=== PATIENT | female | born 1955 | race Caucasian/White ===

== ENCOUNTER 2019-08-05 04:10 | Inpatient (IN) ==
--- NOTE | 2019-07-30 08:23 | EKG Report ---
Test Performed on : 07/30/2019 08:11:24 AM Test Reason : PAT Blood Pressure : / mmHG Vent. Rate : 082 BPM Atrial Rate : 082 BPM P-R Int : 102 ms QRS Dur : 074 ms QT Int : 374 ms P-R-T Axes : 032 070 066 degrees QTc Int : 436 ms Sinus rhythm. with short UT Otherwise normal ECG No previous ECGs available Confirmed by Franco Maradiaga MD ([id number]) on 07/31/2019 12:22:48 PM
[2019-07-30 09:00] LABS: URINE SOURCE CLEAN CATCH
[2019-07-30 09:11] LABS: BASO# 0.02 X1000 (0.0-0.2); BASO% 0.5 % (0.0-0.8); EOS# 0.07 X1000 (0.0-0.7); EOS% 1.7 % (0.0-10.0); HEMATOCRIT 40.9 % (37.0-47.0); HEMOGLOBIN 13.8 g/dL (12.0-16.0); LYMPH# 1.54 X1000 (1.2-3.4); LYMPH% 37.2 % (20.5-51.1); MCH 31.1 PG (27-31); MCHC 33.7 g/dL (33-37); MCV 92.1 FL (81-99); MONO# 0.26 X1000 (0.11-0.59); MONO% 6.3 % (1.7-9.3); MPV 10.3 FL (7.4-10.4); NEUT# 2.25 X1000 (1.4-6.5); NEUT% 54.3 % (42.2-75.2); PLT 238 X1000 (130-400); RBC 4.44 XMIL (4.2-5.4); RDW 12.6 % (11.5-14.5); WBC 4.14 X1000 (4.8-10.8)
[2019-07-30 09:19] LABS: INR 0.99; PROTIME 13.1 Seconds (11.0-16.0); PTT 27.5 Seconds (22.3-41.8)
[2019-07-30 09:54] LABS: BILIRUBIN URINE NEGATIVE (NEGATIVE); BLOOD URINE NEGATIVE (NEGATIVE); COLOR YELLOW; GLUCOSE URINE NEGATIVE (NEGATIVE); KETONE URINE NEGATIVE (NEGATIVE); LEUKOCYTES URINE MODERATE (NEGATIVE); NITRITE URINE NEGATIVE (NEGATIVE); PH URINE 5.5; PROTEIN URINE NEGATIVE (NEGATIVE); SP GRAVITY URINE 1.024; TURBIDITY URINE CLEAR (CLEAR); UROBILINOGEN URINE NORMAL (NORMAL)
[2019-07-30 09:55] LABS: UR EPITHELIAL CELLS <10 /HPF (<10); URINE BACTERIA NEGATIVE /HPF; URINE RBC <10 /HPF (<10); URINE WBC <10 /HPF (<10)
[2019-07-30 09:56] LABS: AGAP 11; ALBUMIN 4.3 g/dL (3.5-5.0); BUN 14 mg/dL (8-22); CALCIUM 9.1 mg/dL (8.8-10.2); CHLORIDE 105 mmol/L (98-107); COSMO 283; CREATININE 0.7 mg/dL (0.5-0.9); ESTIMATED GFR > 60; GLUCOSE 94 mg/dL (70-104); POTASSIUM 4.1 mmol/L (3.5-5.1); SODIUM 142 mmol/L (136-145); TCO2 26 mmol/L (25-35)
[2019-07-30 11:17] LABS: HEMOGLOBIN A1C 5.1 % (4.8-6.0)
[2019-08-05] MEDS ORDERED: REGLAN ONE (06:00)
[2019-08-05] MEDS ORDERED: COLACE ONE (06:00)
[2019-08-05] MEDS ORDERED: PEPCID ONE (06:00)
[2019-08-05] MEDS ORDERED: CELEBREX ONE (06:00)
[2019-08-05] MEDS ORDERED: LYRICA ONE (06:00)
[2019-08-05] MEDS ORDERED: KEFZOL 1 GM/D5W 1 GM/50 ML IVPB ONE (06:01)
[2019-08-05] MEDS ORDERED: LR 1,000 ML ONE (06:01)
[2019-08-05] MEDS ORDERED: QUELICIN (DOSE) ONE (06:31)
[2019-08-05] MEDS ORDERED: XYLOCAINE-MPF 2% ONE (06:31)
[2019-08-05] MEDS ORDERED: DIPRIVAN 1% ONE (06:32)
[2019-08-05] MEDS ORDERED: FENTANYL ONE (06:32)
[2019-08-05] MEDS ORDERED: SUFENTA ONE (06:46)
[2019-08-05] MEDS ORDERED: DECADRON ONE (06:56)
[2019-08-05] MEDS ORDERED: ZEMURON ONE (06:56)
[2019-08-05] MEDS ORDERED: SODIUM CHLORIDE 0.9% ONE (06:58)
[2019-08-05] MEDS ORDERED: EXPAREL 1.3% ONE (06:58)
[2019-08-05] MEDS ORDERED: CYKLOKAPRON 1,000 MG/NS 1,000 MG/100 ML IVPB ONE (06:58)
[2019-08-05] MEDS ORDERED: DURAMORPH ONE (06:58)
[2019-08-05] MEDS ORDERED: MARCAINE 0.25% PF ONE (06:58)
[2019-08-05] MEDS ORDERED: NEOSPORIN G.U. IRRIGANT ONE (06:58)
[2019-08-05] MEDS ORDERED: TORADOL ONE (06:58)
[2019-08-05] MEDS ORDERED: NEOSTIGMINE ONE (08:46)
[2019-08-05] MEDS ORDERED: ROBINUL ONE (08:48)
[2019-08-05] MEDS ORDERED: ZOFRAN ONE (08:48)
[2019-08-05 09:06] LABS: URINE SOURCE CATH
[2019-08-05 09:13] LABS: COLOR STRAW; TURBIDITY URINE CLEAR (CLEAR); UR EPITHELIAL CELLS <10 /HPF (<10); URINE BACTERIA NEGATIVE /HPF; URINE RBC <10 /HPF (<10); URINE WBC <10 /HPF (<10)
[2019-08-05 09:14] LABS: BILIRUBIN URINE NEGATIVE (NEGATIVE); BLOOD URINE NEGATIVE (NEGATIVE); GLUCOSE URINE NEGATIVE (NEGATIVE); KETONE URINE NEGATIVE (NEGATIVE); LEUKOCYTES URINE NEGATIVE (NEGATIVE); NITRITE URINE NEGATIVE (NEGATIVE); PH URINE 5.5; PROTEIN URINE NEGATIVE (NEGATIVE); SP GRAVITY URINE 1.025; UROBILINOGEN URINE NORMAL (NORMAL)
[2019-08-05] MEDS ORDERED: NS 1,000 ML ONE (09:32)
[2019-08-05] MEDS: MORPHINE ONE ×6 (09:43→10:15)
[2019-08-05] MEDS ORDERED: OFIRMEV 1000 MG/ISOTONIC SOLN 1,000 MG/100 ML BOTTLE ONE (09:58)
[2019-08-05] MEDS ORDERED: ZOFRAN ODT PO PRN (10:15)
[2019-08-05] MEDS ORDERED: MORPHINE IV PRN ×3 (10:15)
[2019-08-05] MEDS ORDERED: OXY IR PO PRN ×2 (10:15)
[2019-08-05] MEDS: ULTRAM PO SCH ×3 (12:08→22:30)
[2019-08-05] MEDS: TYLENOL PO SCH ×3 (12:08→22:30)
[2019-08-05] MEDS ORDERED: CYKLOKAPRON 1,000 MG in NS 100 ML IV ONE (13:40)
[2019-08-05] MEDS: ZOFRAN IV PRN ×2 (13:57→22:56)
--- NOTE | 2019-08-05 14:33 | OPERATIVE NOTE ---
PROCEDURE DATE: 08/05/2019 PREOPERATIVE DIAGNOSIS: Degenerative joint disease, left hip. POSTOPERATIVE DIAGNOSIS: Degenerative joint disease, left hip. PROCEDURE PERFORMED: Left total hip replacement anterior approach. SURGEON: Dejah Zamudio MD. TABLE OPERATOR: JAMAR Santo. Mr. Rahman was necessary for proper retraction and manipulation of the leg during the case. ANESTHESIA: General. COMPLICATION: None. PROCEDURE IN DETAIL: A 64-year-old female presents for left anterior hip replacement. Risks, benefits, and no guarantees were discussed and she is willing to proceed. She was taken to the operating room and satisfactory anesthesia obtained. The left hip was prepped and draped on the Trout table in the usual sterile fashion. A time-out was taken to confirm operative site, procedure, and patient. Afterwards an anterior approach to the left hip was undertaken with a 10 cm incision starting 1 cm distal and lateral to the anterior superior iliac spine. Dissection was carried down through the skin and subcutaneous fat to the fascia of the tensor fascia shea. This was split in line with the incision and blunt dissection along the inner membrane undertaken down the anterior hip capsule. Cobra retractors placed over the superior and inferior femoral neck and a capsulotomy incision made. The C-arm was used to reference an AP pelvis with the lesser trochanters visible for preoperative evaluation and leg length determination. A femoral neck osteotomy was made roughly 8 mm above the lesser trochanter and the femoral head removed. A small Cobra retractor was placed carefully directly on the anterior acetabular bone to protect the anterior neurovascular bundle during reaming. Sequential reaming up to a 49 reamer was undertaken with good corticocancellous bleeding bone in the acetabulum. A DePuy 50 mm outer diameter Sturgeon DuoFix KLINE coated cup was impacted in the acetabulum under fluoroscopic guidance in 45 degrees of abduction and 15 degrees of anteversion. A secure press-fit fixation was achieved. A 25 length screw was placed in the 12 o'clock position of the cup for additional security followed by a 0 degree 32 mm inner diameter polyethylene bearing. The bearing was impacted in the cup and the bearing cup interface and cup bone interface checked and noted to be stable. Traction was released off the leg and utilizing the Trout table, the hip was externally rotated and extended to facilitate broaching the proximal femur. Sequential broaching with the MysteryDuy active broach system was undertaken up to a 4 stem which had good axial and rotational stability. Standard neck collar with a 1.5 neck length revealed latter day of leg length and anatomy with good stability of the hip. The trial stem was removed and an Actis collar size 4 standard neck geometry stem impacted in the proximal femur with secure fixation. A 32 mm ceramic head ball with a 1.5 neck taper was impacted onto this and the hip reduced. The stability was assessed by flexing the hip up and internally rotating it with no posterior instability. The hip was extended to the floor and externally rotated 75 degrees with no anterior instability. The C-arm was used to verify accurate placement and geometry of the components as well as leg length. The wound was copiously irrigated with irrigant. A Hemovac drain was placed. The joint capsule and subcutaneous was injected with Exparel for pain management. The fascia of the tensor was closed with a running V-Loc, the subcutaneous with 2-0 Vicryl and the skin with the peroneal skin closure. She was sterilely dressed and recovered from anesthesia and transferred to the recovery room in stable condition. No intraoperative complications were noted. Instrument count and sponge count was correct at the time of closure. cc: Adama Zamudio MD
[2019-08-05] MEDS: KEFZOL 1 GM/D5W 1 GM/50 ML IVPB IV SCH ×2 (16:25→22:57)
--- NOTE | 2019-08-05 18:29 | ORTHOPAEDICS PROGRESS NOTE ---
DATE: 08/05/2019 SUBJECTIVE DATA: Ms. Alvarez is seen on postop day 0 for a left total hip arthroplasty. She reports she is having some nausea at this time. She states her pain is 6/10. She reports she was also not able to get up with physical therapy due to her nausea. OBJECTIVE DATA: There is good sensation to the left lower extremity. Her splint and bandages are clean and dry. There are good pedal pulses. There is good capillary refill in the toes. The patient can flex her quadriceps muscles without difficulty and bend her knee. Vital signs are stable. ASSESSMENT: 1. Degenerative joint disease, left hip. 2. Left total hip arthroplasty. 3. Nausea. PLAN: Plan to get some nausea medicine on board. We will keep her here overnight and check back on her in the morning. Hopefully, we will get her up and walking tomorrow. Dictated by JAMAR Santo for Adama Zamudio MD cc: JAMAR Santo MD
[2019-08-05] MEDS: CELEBREX PO SCH (22:30)
[2019-08-05] MEDS: COLACE PO SCH (22:30)
[2019-08-05] MEDS: PERIDEX MT SCH ×2 (22:30→22:58)
[2019-08-05] MEDS: NS 1,000 ML IV SCH (22:58)
[2019-08-06] MEDS: NS 1,000 ML IV SCH (01:32)
[2019-08-06] MEDS: TYLENOL PO SCH ×4 (06:32→22:54)
[2019-08-06] MEDS: ULTRAM PO SCH ×4 (06:42→22:54)
[2019-08-06] MEDS ORDERED: NS 500 ML IV ONE (07:02)
[2019-08-06 07:11] LABS: HEMATOCRIT 25.6 % (37.0-47.0); HEMOGLOBIN 8.4 g/dL (12.0-16.0)
[2019-08-06 07:43] LABS: AGAP 8; BUN 7 mg/dL (8-22); CALCIUM 7.9 mg/dL (8.8-10.2); CHLORIDE 106 mmol/L (98-107); COSMO 274; CREATININE 0.5 mg/dL (0.5-0.9); ESTIMATED GFR > 60; GLUCOSE 111 mg/dL (70-104); POTASSIUM 3.4 mmol/L (3.5-5.1); SODIUM 138 mmol/L (136-145); TCO2 24 mmol/L (25-35)
[2019-08-06] MEDS: COLACE PO SCH ×2 (08:05→22:54)
[2019-08-06] MEDS: PEPCID PO SCH (08:05)
[2019-08-06] MEDS: PERIDEX MT SCH ×2 (08:06→22:54)
[2019-08-06] MEDS: ASPIRIN PO SCH (08:06)
[2019-08-06] MEDS: CELEBREX PO SCH ×2 (08:06→22:55)
--- NOTE | 2019-08-06 09:57 | ORTHOPAEDICS PROGRESS NOTE ---
DATE: 08/06/2019 SUBJECTIVE: Ms. Alvarez is seen status post total hip replacement. She is afebrile. She does have a relative hypotension this morning. We will plan on giving her fluid bolus. Postoperatively, she appears to be motor and sensory intact. There are no signs of DVT, infection or bleeding. Hematocrit is pending this morning. We will DC the lines after the fluid bolus and mobilize her. We will consider discharge home today if her blood pressure is stable and nausea controlled as well. She can receive home therapy and follow up with us in roughly 2 weeks if she does well today. cc: Adama Zamudio MD
--- NOTE | 2019-08-06 13:19 | ORTHOPAEDICS PROGRESS NOTE ---
DATE: 08/06/2019 SUBJECTIVE DATA: Ms. Alvarez is seen postoperative day 1 of her left total hip arthroplasty. She reports she has had some dizziness, as well as some low blood pressure today. She reports her nausea is somewhat improved, but she still has some nausea. She denies throwing up. She states her pain is a 4/10. She states she did get up and walk with physical therapy around the nursing station. OBJECTIVE DATA: There is good sensation in the left lower extremity. There are good pedal pulses. Her bandages are clean and dry. Her incision site looks well. There is negative Homans sign. The patient can flex her quadriceps muscles without difficulty. Current hemoglobin and hematocrit is 8.4 and 25.6. Her last 2 blood pressures were a little bit low. Her last blood pressure was 99/43. ASSESSMENT: 1. Hypotension. 2. Dizziness. 3. Degenerative joint disease of the left hip with left total hip arthroplasty. 4. Anemia. PLAN: We plan to give her 1 unit of packed red blood cells to see if that will help normalize her blood pressure and resolve her dizziness. We will check back on her tomorrow and see if she is ready for discharge. Dictated by JAMAR Santo for Adama Zamudio MD cc: JAMAR Santo MD
[2019-08-06] MEDS: REGLAN IV SCH ×2 (15:33→22:55)
[2019-08-07] MEDS: REGLAN IV SCH (06:05)
[2019-08-07] MEDS: TYLENOL PO SCH (06:05)
[2019-08-07] MEDS: ULTRAM PO SCH (06:06)
[2019-08-07 07:38] LABS: HEMATOCRIT 30.7 % (37.0-47.0); HEMOGLOBIN 9.9 g/dL (12.0-16.0)
[2019-08-07 07:59] VITALS: BP 141/73
[2019-08-07] MEDS: COLACE PO SCH (08:30)
[2019-08-07] MEDS: ASPIRIN PO SCH (08:30)
[2019-08-07] MEDS: PEPCID PO SCH (08:31)
[2019-08-07] MEDS: PERIDEX MT SCH (08:31)
[2019-08-07] MEDS: CELEBREX PO SCH (08:31)
--- NOTE | 2019-08-08 08:00 | DISCHARGE SUMMARY ---
ADMISSION DATE: 08/05/2019 DISCHARGE DATE: 08/07/2019 ADMITTING DIAGNOSIS: Degenerative joint disease of the left hip. DISCHARGE DIAGNOSES: 1. Degenerative joint disease of the left hip. 2. Nausea. PRINCIPLE PROCEDURE: Left total hip arthroplasty. PAST MEDICAL HISTORY: Degenerative joint disease of the left hip. DISCHARGE MEDICATIONS: Include [place] 10 mg for pain, aspirin 325 mg daily for DVT prophylaxis, Phenergan for nausea, Reglan for nausea, Bactrim DS for infection prevention. HOSPITAL COURSE: The patient was taken to the operating room on 08/05/2019 where a left total hip arthroplasty was performed. She tolerated the procedure well. She was then transferred to the postoperative recovery room where she did great. She transferred to the surgical floor where mechanical and chemical DVT prophylaxis was initiated. Routine postoperative antibiotics were administered. Her Hemovac drain was discontinued on postoperative day 2. She did not have much success the first day after surgery with physical therapy. She started developing some nausea and vomiting, as well as some dizziness and lightheadedness. It was found that her hemoglobin and hematocrit were slightly lower than the average, and 1 unit of packed red blood cells was administered to the patient on 08/06/2019. Upon examination on 08/07/2019, the patient is doing much better. She has been able to spontaneously void. She has been ambulating to the bathroom with assistance. Her incision remained clean, dry, and intact during the hospital course. Her nausea has since resolved. She reports that her dizziness and lightheadedness have went away as well. She was felt ready to be discharged home on 08/07/2019. She has had good pedal pulses in the left lower extremity. She can flex her quadriceps muscles. There is good sensation. DISPOSITION: She is going to be discharged home with home therapy. She can follow up with Dr. Zamudio in 10 days. DISCHARGE INSTRUCTIONS: She may shower tomorrow. We will check back on her in the office when she comes to see us. Dictated by JAMAR Santo for Adama aZmudio MD cc: JAMAR Santo MD
== END 2019-08-07 11:42 | disposition home health service (06) | DRG 470 ==
LOC: SURHOLD 04:10 → 4N 07:56
PROVIDERS: ADMIT Orthopaedic Surgery Adult Reconstructive Orthopaedic Surgery; ATTEND Orthopaedic Surgery Adult Reconstructive Orthopaedic Surgery